=== PATIENT | female | born 1995 | race American Indian/Alaskan Native ===

== ENCOUNTER 2018-02-03 09:27 | Emergency (ER) | payer SELFPAY ==
[2018-02-03 10:00] VITALS: BP 105/56
--- NOTE | 2018-02-03 11:30 | Emergency Department Report ---
ED Abdominal Pain HPI - General Chief Complaint: Abdominal Pain Stated Complaint: ABD PAIN Time Seen by Provider: 02/03/18 11:24 Source: patient Mode of arrival: Ambulatory Limitations: No Limitations - History of Present Illness Initial Comments: This is [id number] female patient here with lower pelvic pain 1 day. She reports hematuria and urinary burning. Denies any vaginal bleeding or discharge or any concern for STD. Denies any nausea vomiting or diarrhea. She had similar incident past. Denies any fever or chills last menstrual period was 01/24/2018. Denies any flank pain. She reports pelvic pain times one day that time. On and off. No medication taken. Pain is 3-410. Patient has past medical history of miscarriage and vaginal delivery. She denies any fever or chills. Denies any back pain. MD Complaint: abdominal pain Onset/Timin -: days(s) Location: suprapubic Radiation: none Migration to: no migration Severity: mild Severity scale (0 -10): 3 Quality: cramping Consistency: intermittent Improves With: nothing Worsens With: nothing Context: other Associated Symptoms: hematuria. denies: nausea, vomiting, diarrhea, fever, chills, constipation, dysuria, hematemesis, hematochezia, melena, anorexia, syncope Treatments Prior to Arrival: other (none) - Related Data LMP Date: 01/24/18 Previous Rx's Medication Instructions Recorded Last Taken Type Fluconazole [Diflucan TAB] 150 mg PO ONCE #1 tablet 02/14/16 Unknown Rx Nitrofurantoin [place]/M-Cryst 100 mg PO Q12HR #10 capsule 02/14/16 Unknown Rx [Macrobid CAP] metroNIDAZOLE [Flagyl TAB] 500 mg PO Q12HR #14 tab 02/14/16 Unknown Rx Sulfamethoxazole/Trimethoprim 1 each PO BID 7 Days #14 tablet 02/03/18 Unknown Rx [Bactrim DS TAB] Allergies Allergy/AdvReac Type Severity Reaction Status Date / Time No Known Allergies Allergy Verified 12/26/15 00:08 ED Review of Systems ROS: Stated complaint: ABD PAIN Other details as noted in HPI Constitutional: denies: chills, fever Eyes: denies: eye discharge ENT: denies: ear pain, throat pain, congestion Respiratory: denies: cough, shortness of breath, SOB with exertion, wheezing Cardiovascular: denies: chest pain, palpitations, dyspnea on exertion, edema, syncope Gastrointestinal: abdominal pain. denies: nausea, vomiting, diarrhea, constipation, hematemesis, melena, hematochezia Genitourinary: dysuria, hematuria. denies: urgency, frequency, discharge, abnormal menses, dyspareunia Musculoskeletal: denies: back pain, joint swelling, arthralgia, myalgia Skin: denies: rash, lesions Neurological: denies: headache ED Past Medical Hx - Past Medical History Previous Medical History?: Yes Additional medical history: Miscarriage, Vaginal delivery x 1 - Surgical History Past Surgical History?: No - Family History Family history: hypertension - Social History Smoking Status: Never Smoker Substance Use Type: None - Medications Home Medications: Home Medications Medication Instructions Recorded Confirmed Last Taken Type Fluconazole [Diflucan TAB] 150 mg PO ONCE #1 tablet 02/14/16 Unknown Rx Nitrofurantoin [place]/M-Cryst 100 mg PO Q12HR #10 capsule 02/14/16 Unknown Rx [Macrobid CAP] metroNIDAZOLE [Flagyl TAB] 500 mg PO Q12HR #14 tab 02/14/16 Unknown Rx Sulfamethoxazole/Trimethoprim 1 each PO BID 7 Days #14 tablet 02/03/18 Unknown Rx [Bactrim DS TAB] ED Physical Exam - General Limitations: No Limitations General appearance: alert, in no apparent distress - Head Head exam: Present: atraumatic, normocephalic, normal inspection - Eye Eye exam: Present: normal appearance, PERRL, EOMI Pupils: Present: normal accommodation - ENT ENT exam: Present: normal exam, normal orophraynx, mucous membranes moist, TM's normal bilaterally, normal external ear exam - Neck Neck exam: Present: normal inspection, full ROM. Absent: tenderness, lymphadenopathy - Respiratory Respiratory exam: Present: normal lung sounds bilaterally. Absent: respiratory distress, chest wall tenderness - Cardiovascular Cardiovascular Exam: Present: regular rate, normal rhythm, normal heart sounds. Absent: systolic murmur, diastolic murmur - GI/Abdominal GI/Abdominal exam: Present: soft, normal bowel sounds. Absent: distended, tenderness, guarding, rebound, rigid, organomegaly, mass, bruit, pulsatile mass - Extremities Exam Extremities exam: Present: normal inspection, full ROM, normal capillary refill , other (No cce. + 2 pulses in all extremities, no neurovascular compromise). Absent: tenderness, pedal edema, joint swelling, calf tenderness - Back Exam Back exam: Present: normal inspection, full ROM, other (ambulates without difficulties). Absent: tenderness, CVA tenderness (R), CVA tenderness (L), muscle spasm, paraspinal tenderness, vertebral tenderness, rash noted - Neurological Exam Neurological exam: Present: alert, oriented X3, normal gait - Psychiatric Psychiatric exam: Present: normal affect, normal mood - Skin Skin exam: Present: warm, dry, intact, normal color. Absent: rash ED Course Vital Signs 02/03/18 09:58 Temperature 97.7 F Pulse Rate 65 Respiratory 16 Rate Blood Pressure 105/56 O2 Sat by Pulse 99 Oximetry - Reevaluation(s) Reevaluation #1: 02/03/18 12:09 Patient with urinary tract infection. I did physical exam on her and I told her that we will await a urine result to include and UA. Urinalysis shows large amount of blood with white counts and leukocyte Estrace with positive bacteria and a test is negative. I went in the room to discuss results with the patient and was told by nurse the patient signed AMA. I tried to contact her via telephone and her voicemail came on so try to call her back in. Reevaluation #2: 02/03/18 17:51 Patient just callback via phone after left the message on her phone to call me back. I told her that she has infection in about the need to be treated and she gave a pharmacy number to call prescription in. I called in prescription as [facility] pharmacy on [address] [place] [address] Contact number [phone] Store #[id number]. I gave her information to the pharmacist for Bactrim DS one tablet twice a day for 7 days #14 with no refill. Patient is aware that medication called in and she said when her mom who comes to go pick it up. ED Medical Decision Making - Lab Data Lab Results 02/03/18 Range/Units 10:31 Urine Color Yellow (Yellow) Urine Turbidity Turbid (Clear) Urine pH 6.0 (5.0-7.0) Ur Specific [place] 1.024 (1.003-1.030) Urine Protein 100 mg/dl (Negative) mg/dL Urine Glucose (UA) Neg (Negative) mg/dL Urine Ketones Tr (Negative) mg/dL Urine Blood Lg (Negative) Urine Nitrite Neg (Negative) Ur Reducing Substances Not Reportable Urine Bilirubin Neg (Negative) Urine Ictotest Not Reportable Urine Urobilinogen < 2.0 (<2.0) mg/dL Ur Leukocyte Esterase Lg (Negative) Urine WBC (Auto) > 182.0 H (0.0-6.0) /HPF Urine RBC (Auto) > 182.0 (0.0-6.0) /HPF U Epithel Cells (Auto) 8.0 (0-13.0) /HPF Urine WBC Clumps 2+ /HPF Ur Transition Epith Cell 2 /HPF Urine Mucus 3+ /HPF Urine HCG, Qual Negative (Negative) Urine culture sent - Differential Diagnosis pyelonephritis, , UTI Critical care attestation.: If time is entered above; I have spent that time in minutes in the direct care of this critically ill patient, excluding procedure time. ED Disposition Clinical Impression: Acute cystitis with hematuria, Pelvic cramping Disposition: LEFT AGAINST MED ADVICE Is pt being admited?: No Does the pt Need Aspirin: No Condition: Stable Instructions: Abdominal Pain (ED), Dysuria (ED), Urinary Tract Infection in Women (ED) Additional Instructions: I gave patient information via telephone and she had left Hospital before getting information on diagnosis and medication. Prescription called in and she will pick the prescription up. I also told her that she needs to follow up with [facility] or primary care physician in 2 day. I instructed the patient that if she needs her discharge instruction paperwork she came in come back to the hospital to get information. Prescriptions: Sulfamethoxazole/Trimethoprim [Bactrim DS TAB] 1 each PO BID 7 Days #14 tablet Referrals: PRIMARY MD ENIO [Primary Care Provider] - 02/05/18
[2018-02-03 11:36] LABS: HCG Qualitative,Urine Negative (Negative)
[2018-02-03 11:40] LABS: Bilirubin,Urine NEG (Negative); Blood,Urine LG (Negative); Color,Urine Yellow (Yellow); Mucus,Urine 3+ /HPF; Urobilinogen,Urine < 2.0 mg/dL (<2.0)
[2018-02-03 11:43] LABS: RBC,Urine > 182.0 /HPF (0.0-6.0); WBC,Urine > 182.0 /HPF (0.0-6.0)
== END 2018-02-03 11:46 | disposition left against medical advice (07) ==
LOC: ED 09:27
DX: N30.01 Acute cystitis with hematuria (principal)
CPT/HCPCS: 81001; 81025; 99283

== ENCOUNTER 2021-09-18 10:50 | Emergency (ER) | payer SELFPAY ==
[2021-09-18] MEDS ORDERED: ONDANSETRON 4 MG/2 ML INJ IV ONE (11:56)
[2021-09-18] MEDS ORDERED: MORPHINE 4 MG/1 ML INJ IV ONE (11:56)
--- NOTE | 2021-09-18 12:02 | Emergency Department Report ---
ED Abdominal Pain HPI - General Chief Complaint: Abdominal Pain Stated Complaint: ABD PAIN PUI?: No Time Seen by Provider: 09/18/21 10:56 Source: patient, EMS Mode of arrival: Stretcher Limitations: No Limitations - History of Present Illness Initial Comments: Chief complaint: I hurt in my stomach in my pelvis. HPI: This is a 26-year-old female without significant past medical history who presents with lower abdominal pain rating to the pelvis this morning at 5:00. Sharp severe pain without radiation. She denies vaginal discharge. Denies vaginal bleeding. Last menstrual period September 01, 2021. MD Complaint: abdominal pain -: Gradual, This morning Location: LLQ, RLQ Radiation: none Severity: severe Severity scale (0 -10): 7 Quality: aching, sharp Consistency: constant Improves With: nothing Worsens With: nothing Associated Symptoms: denies other symptoms - Related Data Previous Rx's Medication Instructions Recorded Last Taken Type Fluconazole (Nf) [Diflucan TAB] 150 mg PO ONCE #1 tablet 02/14/16 Unknown Rx Nitrofurantoin [place]/M-Cryst 100 mg PO Q12HR #10 capsule 02/14/16 Unknown Rx [Macrobid CAP] metroNIDAZOLE [Flagyl TAB] 500 mg PO Q12HR #14 tab 02/14/16 Unknown Rx Sulfamethoxazole/Trimethoprim 1 each PO BID 7 Days #14 tablet 02/03/18 Unknown Rx [Bactrim DS TAB] Polyethylene Glycol 3350 [Miralax] 1 cap PO DAILY PRN #1 container 09/18/21 Unknown Rx Allergies Allergy/AdvReac Type Severity Reaction Status Date / Time No Known Allergies Allergy Verified 09/18/21 10:54 ED Review of Systems ROS: Stated complaint: ABD PAIN Other details as noted in HPI Comment: All other systems reviewed and negative Constitutional: denies: chills, fever, malaise Respiratory: denies: cough, shortness of breath Cardiovascular: denies: chest pain Gastrointestinal: abdominal pain. denies: nausea, vomiting, diarrhea ED Past Medical Hx - Past Medical History Previous Medical History?: No Additional medical history: Miscarriage, Vaginal delivery x 1 - Surgical History Past Surgical History?: No - Social History Smoking Status: Never Smoker Substance Use Type: None - Medications Home Medications: Home Medications Medication Instructions Recorded Confirmed Last Taken Type Fluconazole (Nf) [Diflucan TAB] 150 mg PO ONCE #1 tablet 02/14/16 Unknown Rx Nitrofurantoin [place]/M-Cryst 100 mg PO Q12HR #10 capsule 02/14/16 Unknown Rx [Macrobid CAP] metroNIDAZOLE [Flagyl TAB] 500 mg PO Q12HR #14 tab 02/14/16 Unknown Rx Sulfamethoxazole/Trimethoprim 1 each PO BID 7 Days #14 tablet 02/03/18 Unknown Rx [Bactrim DS TAB] Polyethylene Glycol 3350 [Miralax] 1 cap PO DAILY PRN #1 container 09/18/21 Unknown Rx ED Physical Exam - General Limitations: No Limitations General appearance: alert, in no apparent distress - Head Head exam: Present: atraumatic, normocephalic - Eye Eye exam: Present: normal appearance - ENT ENT exam: Present: mucous membranes moist - Neck Neck exam: Present: normal inspection, full ROM - Respiratory Respiratory exam: Present: normal lung sounds bilaterally. Absent: respiratory distress, wheezes, rales, rhonchi - Cardiovascular Cardiovascular Exam: Present: regular rate, normal rhythm, normal heart sounds. Absent: systolic murmur, diastolic murmur, rubs, gallop - GI/Abdominal GI/Abdominal exam: Present: soft, normal bowel sounds. Absent: distended, tenderness, guarding, rebound - Extremities Exam Extremities exam: Present: normal inspection - Neurological Exam Neurological exam: Present: alert, oriented X3 - Psychiatric Psychiatric exam: Present: normal affect, normal mood - Skin Skin exam: Present: warm, dry, intact, normal color. Absent: rash ED Course Vital Signs 09/18/21 09/18/21 09/18/21 10:51 11:17 11:22 Temperature 98.3 F 98.1 F Pulse Rate 63 75 Respiratory 14 11 L Rate Blood Pressure Blood Pressure 105/61 [Left] O2 Sat by Pulse 100 Oximetry 09/18/21 09/18/21 09/18/21 11:23 11:30 11:46 Temperature Pulse Rate 91 H 68 Respiratory 23 17 Rate Blood Pressure 104/50 104/50 Blood Pressure [Left] O2 Sat by Pulse 100 100 100 Oximetry 09/18/21 09/18/21 09/18/21 12:00 12:24 12:30 Temperature Pulse Rate Respiratory Rate Blood Pressure 108/54 116/45 116/45 Blood Pressure [Left] O2 Sat by Pulse 100 Oximetry 09/18/21 09/18/21 09/18/21 12:54 13:00 13:32 Temperature Pulse Rate Respiratory Rate Blood Pressure 112/43 112/43 64/46 Blood Pressure [Left] O2 Sat by Pulse Oximetry 09/18/21 09/18/21 09/18/21 14:04 14:24 14:39 Temperature Pulse Rate Respiratory Rate Blood Pressure 41/21 122/69 114/58 Blood Pressure [Left] O2 Sat by Pulse Oximetry ED Medical Decision Making - Lab Data Result diagrams: 09/18/21 12:06 09/18/21 12:06 - Radiology Data Radiology results: report reviewed Patient Name: IVORY DOE Gender: Female Date of : 1995 Referring Provider: DEREK GRAY Organization: [facility] Accession Number: [id number] Requested Date: September 18, 2021 11:56 Report Status: Final Requested Procedure: 1 Procedure Description: CT abdomen pelvis wo con Modality: CT Findings Reporting MD: Pb Katz Dictation Time: September 18, 2021 13:56 Area Development Consultant: Not available Content Development Specialist Date: CT ABDOMEN AND PELVIS WITHOUT CONTRAST INDICATION / CLINICAL INFORMATION: severe lower abdominal pain pelvic pain. TECHNIQUE: Axial CT images were obtained through the abdomen and pelvis without IV contrast. All CT scans at this location are performed using CT dose reduction for ALARA by means of automated exposure control. COMPARISON: None available. FINDINGS: Examination is limited due to paucity of intra-abdominal fat and lack of intravenous contrast. Lung bases are clear. Liver, gallbladder, pancreas, spleen, and adrenals are unremarkable. No acute abnormality of either kidney. No urolithiasis or hydronephrosis. Bladder is partially decompressed but unremarkable. 2.7 cm right adnexal cystic structure. Small volume free fluid in the pelvis. Stomach and small bowel are normal in caliber. There is moderate stool throughout the colon. No evidence of localized bowel inflammation or obstruction. Appendix is not definitely seen. There are no secondary signs of appendicitis identified in the right lower quadrant. No free air or organized collection. No evidence of adenopathy. No acute osseous findings. IMPRESSION: 1. No acute abnormality of the abdomen or pelvis, within the limitations of this noncontrast study. 2. Moderate stool in colon, may reflect constipation. No evidence of localized bowel inflammation or obstruction. Appendix is not seen, though there are no secondary signs of appendicitis. 3. 2.7 cm right adnexal cyst with small volume free fluid in the pelvis, likely physiologic in this young female patient. Signer Name: Pb Katz MD Signed: 09/18/2021 1:56 PM Workstation Name: [id number] - Medical Decision Making Clinical impression: Constipation, right ovarian cyst. Prescribed ibuprofen. CBC chemistry unremarkable. test negative IV contrast extravasation in the upper extremity: No evidence of compartment syndrome compressible compartments minimal discomfort. Critical care attestation.: If time is entered above; I have spent that time in minutes in the direct care of this critically ill patient, excluding procedure time. ED Disposition Clinical Impression: Constipation, Ovarian cyst, Extravasation of intravenous contrast medium Disposition: 01 HOME / SELF CARE / HOMELESS Is pt being admited?: No Does the pt Need Aspirin: No Condition: Stable Instructions: Abdominal Pain (ED), Constipation, Adult, Ovarian Cyst, [id number], IV Infiltration, [id number] Prescriptions: Polyethylene Glycol 3350 [Miralax] 1 cap PO DAILY PRN #1 container PRN Reason: Constipation Referrals: PRIMARY CAREMD [Primary Care Provider] - 3-5 Days YOSVANY TAVAREZ MD [Staff Physician] - 3-5 Days
[2021-09-18 12:43] LABS: Basophils # (Auto) 0.1 K/mm3 (0.0-0.1); Eosinophils # (Auto) 0.1 K/mm3 (0.0-0.4); Eosinophils % (Auto) 1.9 % (0.0-4.3); Hematocrit 40.3 % (30.3-42.9); Lymphocytes # (Auto) 2.1 K/mm3 (1.2-5.4); Lymphocytes % (Auto) 46.3 % (13.4-35.0); Mean Corpuscular HGB Conc 32 % (30-34); Mean Corpuscular Volume 87 fl (79-97); Monocytes # (Auto) 0.3 K/mm3 (0.0-0.8); Monocytes % (Auto) 7.5 % (0.0-7.3); Platelet Count 195 K/mm3 (140-440); Red Blood Count 4.66 M/mm3 (3.65-5.03); Red Cell Distribution Width 13.1 % (13.2-15.2)
[2021-09-18 13:05] LABS: Blood Urea Nitrogen 9 mg/dL (7-17); Calcium 9.7 mg/dL (8.4-10.2); Hemolysis Index 64
[2021-09-18 13:11] LABS: BUN/Creatinine Ratio 18
--- NOTE | 2021-09-18 15:00 | Cat Scan Report ---
CT ABDOMEN AND PELVIS WITHOUT CONTRAST INDICATION / CLINICAL INFORMATION: severe lower abdominal pain pelvic pain. TECHNIQUE: Axial CT images were obtained through the abdomen and pelvis without IV contrast. All CT scans at this location are performed using CT dose reduction for ALARA by means of automated exposure control. COMPARISON: None available. FINDINGS: Examination is limited due to paucity of intra-abdominal fat and lack of intravenous contrast. Lung bases are clear. Liver, gallbladder, pancreas, spleen, and adrenals are unremarkable. No acute abnormality of either kidney. No urolithiasis or hydronephrosis. Bladder is partially decomp ressed but unremarkable. 2.7 cm right adnexal cystic structure. Small volume free fluid in the pelvis . Stomach and small bowel are normal in caliber. There is moderate stool throughout the colon. No evide nce of localized bowel inflammation or obstruction. Appendix is not definitely seen. There are no sec ondary signs of appendicitis identified in the right lower quadrant. No free air or organized collect ion. No evidence of adenopathy. No acute osseous findings. IMPRESSION: 1. No acute abnormality of the abdomen or pelvis, within the limitations of this noncontrast study. 2. Moderate stool in colon, may reflect constipation. No evidence of localized bowel inflammation or obstruction. Appendix is not seen, though there are no secondary signs of appendicitis. 3. 2.7 cm right adnexal cyst with small volume free fluid in the pelvis, likely physiologic in this y oung female patient. Signer Name: Pb Katz MD Signed: 09/18/2021 2:56 PM Workstation Name: [id number]
[2021-09-18 15:09] VITALS: BP 114/77
== END 2021-09-18 15:22 | disposition home or self-care (01) ==
LOC: ED 10:50
DX: K59.00 Constipation, unspecified (principal); N83.209 Unspecified ovarian cyst, unspecified side; T80.818A Extravasation of other vesicant agent, initial encounter
CPT/HCPCS: 36415; 74176; 80048; 83690; 84703; 85025; 99284; J2270; J2405